=== PATIENT | male | born 1945 | race Caucasian/White ===

== ENCOUNTER 2020-10-02 21:22 | Inpatient (IN) | payer MEDICARE, OTHER ==
[~2020-10-02] VITALS: Ht 188 cm; Wt 90.7 kg
[2020-10-02] MEDS ORDERED: ALTACE10 MG PO (21:39)
[2020-10-02] MEDS ORDERED: NORVASC10 MG PO (21:39)
[2020-10-02] MEDS ORDERED: PREVACID30 MG PO (21:40)
[2020-10-02 21:52] LABS: BASOPHILS 0.1 % (0-2); EOSINOPHILS 0 % (0-7); HEMATOCRIT 42.1 % (42.0-54.0); HEMOGLOBIN 14.4 g/dL (13.5-17.5); IMMATURE GRANULOCYTES 0.3 % (0-5); LYMPHOCYTE ABS# 0.85 10x3/uL (1.32-3.57); LYMPHOCYTES 5.3 % (15-50); MCH 30.4 pg (26.0-34.0); MCHC 34.2 g/dL (31.0-37.0); MCV 88.8 fL (80.0-100.0); MEAN PLATELET VOLUME 9.7 fL (7.4-10.4); MONOCYTES 8.1 % (2-11); NEUTROPHIL ABS# 13.87 10x3/uL (1.78-5.38); NEUTROPHILS 86.2 % (40-80); PLATELET COUNT 232 10x3/uL (130-400); RBC 4.74 10x6/uL (4.20-6.10); RDW 13.4 % (11.5-14.5); WBC 16.1 10x3/uL (4.8-10.8)
[2020-10-02 22:21] LABS: CALC OSMOLALITY 279 mosm/kg (275-300); CALCIUM 9.5 mg/dL (8.5-10.1); CARBON DIOXIDE 23.8 mmol/L (21.0-32.0); CHLORIDE - SERUM 101 mmol/L (98-107); CREATININE - SERUM 1.4 mg/dL (0.6-1.3); GLUCOSE 164 mg/dL (74-106); POTASSIUM - SERUM 4.1 mmol/L (3.5-5.1); SODIUM 136 mmol/L (136-145); UREA NITROGEN 23 mg/dL (7-18); eGFR NON AFRICAN AMERICAN 52 mL/min (90-120)
[2020-10-02 22:33] LABS: ALBUMIN 3.7 g/dL (3.4-5.0); ALKALINE PHOSPHATASE 251 U/L (30-120); ALT (SGPT) 475 U/L (10-68); AMYLASE - SERUM 57 U/L (25-115); BILIRUBIN - TOTAL 6.39 mg/dL (0.2-1.3); LIPASE 132 U/L (73-393); PROTEIN - SERUM 8.1 g/dL (6.4-8.2)
[2020-10-02 22:34] LABS: TROPONIN-I < 0.017 ng/mL (0.000-0.060)
[2020-10-03 03:24] VITALS: BP 133/76; BMI 25.7
[2020-10-03 03:53] LABS: BILIRUBIN 3+ (NEGATIVE); KETONE NEGATIVE (NEGATIVE); NITRITE NEGATIVE (NEGATIVE); UROBILINOGEN NORMAL mg/dL (< 2)
[2020-10-03 03:54] LABS: BACTERIA MODERATE HPF (NONE SEEN); SQUAMOUS EPITHELIAL 0-5 HPF (0-4); WHITE CELLS - URINE 0-5 HPF (0-1)
[2020-10-03 04:00] VITALS: BP 114/67
[2020-10-03 05:32] LABS: BASOPHILS 0 % (0-2); EOSINOPHILS 0.1 % (0-7); HEMATOCRIT 39.1 % (42.0-54.0); HEMOGLOBIN 13.1 g/dL (13.5-17.5); IMMATURE GRANULOCYTES 0.3 % (0-5); LYMPHOCYTE ABS# 1.19 10x3/uL (1.32-3.57); LYMPHOCYTES 9.2 % (15-50); MCHC 33.5 g/dL (31.0-37.0); MCV 89.7 fL (80.0-100.0); MONOCYTES 8.3 % (2-11); NEUTROPHIL ABS# 10.57 10x3/uL (1.78-5.38); NEUTROPHILS 82.1 % (40-80); PLATELET COUNT 218 10x3/uL (130-400); RBC 4.36 10x6/uL (4.20-6.10); RDW 13.6 % (11.5-14.5); WBC 12.9 10x3/uL (4.8-10.8)
[2020-10-03 05:58] LABS: ALBUMIN 3.1 g/dL (3.4-5.0); ANION GAP 11.7 mmol/L (8-16); BILIRUBIN - DIRECT 5.13 mg/dL (0.00-0.30); BILIRUBIN - INDIRECT 1.3 mg/dL (0.00-1.00); BILIRUBIN - TOTAL 6.43 mg/dL (0.2-1.3); CALCIUM 9.1 mg/dL (8.5-10.1); CARBON DIOXIDE 26.4 mmol/L (21.0-32.0); CREATININE - SERUM 1.4 mg/dL (0.6-1.3); POTASSIUM - SERUM 4.1 mmol/L (3.5-5.1); PROTEIN - SERUM 7.1 g/dL (6.4-8.2)
[2020-10-03 06:01] LABS: INR 1.18 (0.85-1.17); PROTIME 13.9 SECONDS (11.6-15.0)
[2020-10-03 06:02] LABS: APTT 28.4 SECONDS (22.8-39.4)
[2020-10-03 08:39] VITALS: BP 107/65
[2020-10-03 12:08] VITALS: BP 115/69
[2020-10-03 16:48] VITALS: BP 117/63
--- NOTE | 2020-10-03 17:26 | NUR ---
RESTING,WITHOUT SIGNS OF DISTRESS
--- NOTE | 2020-10-03 18:38 | NUR ---
RECIEVED CALL FROM MARGARET IN LAB PATIENT BLOOD CULTERS ARE GRAM + COCCI IN CHAINS. PAGED DR ELAM AND TEXTED DR GILL WHOM IS PATIENT ADMITTING
--- NOTE | 2020-10-03 19:55 | NUR ---
SPOKE TO DR GILL IN REGARDS TO PATIENT LAB RESULTS, RECEIVED ORDERS TO START PATIENT ON ANTIBIOTICS. HAD PATIENT SIGN CONSENTS FOR ERCP. NO OTHER NEEDS AT THIS TIME. CONTINUE WITH PLAN OF ARE
[2020-10-03 20:00] VITALS: BP 110/60
[2020-10-04] VITALS (7 sets, daily range): BP systolic 102–128; BP diastolic 61–76; Ht 188 cm; Wt 90.7 kg
--- NOTE | 2020-10-04 07:53 | NUR ---
EMT I/99 LIGHT. IV BEEPING. FIXED THE PROBLEM. PATIENT IN BED. DENIES FURTHER NEEDS AT THIS TIME. BED LOW POSITION, CALL LIGHT IN REACH. FREE FROM SIGNS OF DISTRESS. NPO SINCE MIDNIGHT. WILL CONTINUE TO MONITOR.
[2020-10-04 08:27] LABS: BASOPHILS 0.1 % (0-2); EOSINOPHILS 0.3 % (0-7); HEMATOCRIT 36.3 % (42.0-54.0); HEMOGLOBIN 12.3 g/dL (13.5-17.5); IMMATURE GRANULOCYTES 0.2 % (0-5); LYMPHOCYTE ABS# 1.16 10x3/uL (1.32-3.57); LYMPHOCYTES 10.1 % (15-50); MCH 30.2 pg (26.0-34.0); MCHC 33.9 g/dL (31.0-37.0); MCV 89.2 fL (80.0-100.0); MEAN PLATELET VOLUME 9.8 fL (7.4-10.4); MONOCYTES 9.6 % (2-11); NEUTROPHIL ABS# 9.13 10x3/uL (1.78-5.38); NEUTROPHILS 79.7 % (40-80); PLATELET COUNT 176 10x3/uL (130-400); RBC 4.07 10x6/uL (4.20-6.10); RDW 13.7 % (11.5-14.5); WBC 11.5 10x3/uL (4.8-10.8)
[2020-10-04 08:54] LABS: ALBUMIN 2.8 g/dL (3.4-5.0); ANION GAP 11.9 mmol/L (8-16); BILIRUBIN - TOTAL 6.94 mg/dL (0.2-1.3); CALCIUM 8.2 mg/dL (8.5-10.1); CARBON DIOXIDE 24.9 mmol/L (21.0-32.0); CREATININE - SERUM 1.2 mg/dL (0.6-1.3); POTASSIUM - SERUM 3.8 mmol/L (3.5-5.1); PROTEIN - SERUM 6.1 g/dL (6.4-8.2)
--- NOTE | 2020-10-04 10:50 | NUR ---
RIGHT AC IV WENT BAD. REMOVED, CATH TIP INTACT. STARTED IV IN LEFT FOREARM 22 GUAGE. FLUIDS RESUMED.
--- NOTE | 2020-10-04 16:23 | NUR ---
PATIENT LEFT UNIT TO PROCEDURE.
--- NOTE | 2020-10-04 20:00 | NUR ---
PT SITTING UP IN BED WITHOUT DISTRESS, AOX4. AT BEDSIDE. HELPED PT TAKE HIBI CLENS FOR LAP DEISY TOMORROW. CONSENTS ON CHART. REMINDED PT HE IS NPO AFTER MN. VERBALIZED UNDERSTANDING. DENIES OTHER NEEDS
[2020-10-05] VITALS (11 sets, daily range): BP systolic 106–124; BP diastolic 65–76
--- NOTE | 2020-10-05 00:21 | NUR ---
PT IV LEFT WRIST INFILTRATED. REMOVED WITH CATH INTACT. RESITED 20G IV TO LEFT FA X1 ATTEMPT
--- NOTE | 2020-10-05 07:26 | NUR ---
RECIEVED BEDSIDE REPORT. DENIES NEEDS AT THIS TIME. BED LOW POSITION, CALL LIGHT IN REACH. FREE FROM SIGNS OF DISTRESS. WILL CONTINUE TO MONITOR.
[2020-10-05 07:59] LABS: ALBUMIN 2.6 g/dL (3.4-5.0); ANION GAP 12.1 mmol/L (8-16); BILIRUBIN - TOTAL 4.25 mg/dL (0.2-1.3); CALCIUM 8.7 mg/dL (8.5-10.1); CARBON DIOXIDE 23.9 mmol/L (21.0-32.0); CREATININE - SERUM 1.1 mg/dL (0.6-1.3); PROTEIN - SERUM 6.6 g/dL (6.4-8.2)
[2020-10-05 08:11] LABS: BASOPHILS 0 % (0-2); EOSINOPHILS 0 % (0-7); HEMATOCRIT 34.7 % (42.0-54.0); IMMATURE GRANULOCYTES 0.1 % (0-5); LYMPHOCYTE ABS# 0.98 10x3/uL (1.32-3.57); LYMPHOCYTES 13.8 % (15-50); MCH 30.5 pg (26.0-34.0); MCHC 34.6 g/dL (31.0-37.0); MCV 88.1 fL (80.0-100.0); MONOCYTES 6.3 % (2-11); NEUTROPHIL ABS# 5.67 10x3/uL (1.78-5.38); NEUTROPHILS 79.8 % (40-80); PLATELET COUNT 202 10x3/uL (130-400); RBC 3.94 10x6/uL (4.20-6.10); RDW 13.8 % (11.5-14.5)
[2020-10-05 08:15] LABS: WBC 7.1 10x3/uL (4.8-10.8)
--- NOTE | 2020-10-05 10:07 | NUR ---
LEFT UNIT TO PROCEDURE AT THIS TIME.
--- NOTE | 2020-10-05 13:15 | NUR ---
1310 - DR GILL CONSULTED TO ENSURE NO OBJECTIONS TO ONE-TIME DOSE OF TORADOL. ORDERS RECEIVED AND IMPLEMENTED.
--- NOTE | 2020-10-05 13:40 | NUR ---
PATIENT IN BED BACK FROM SURGERY. VITAL SIGNS STABLE. SLEEPY. WILL CONTINUE TO MONITOR.
[2020-10-05 15:12] LABS: ALPHA FETOPROTEIN -(TUMOR MRK) <0.9 ng/mL (0.0-8.3); CA 19-9 209 U/mL (0-35)
--- NOTE | 2020-10-05 16:48 | NUR ---
IN BED RESTING. POST OP VITAL SIGNS STABLE AND CHARTED. LAP SITES CDI. AROUSES TO VOICE. DENIES NEEDS AT THIS TIME. BED LOW POSITION, CALL LIGHT IN REACH. WILL CONTINUE TO MONITOR
[2020-10-06 01:26] VITALS: BP 158/87
[2020-10-06 05:37] LABS: BASOPHILS 0.1 % (0-2); EOSINOPHILS 0.1 % (0-7); HEMATOCRIT 33.7 % (42.0-54.0); HEMOGLOBIN 11.4 g/dL (13.5-17.5); IMMATURE GRANULOCYTES 0.2 % (0-5); LYMPHOCYTE ABS# 0.76 10x3/uL (1.32-3.57); LYMPHOCYTES 8.3 % (15-50); MCH 30.2 pg (26.0-34.0); MCHC 33.8 g/dL (31.0-37.0); MCV 89.4 fL (80.0-100.0); MEAN PLATELET VOLUME 10.1 fL (7.4-10.4); MONOCYTES 10.9 % (2-11); NEUTROPHILS 80.4 % (40-80); PLATELET COUNT 234 10x3/uL (130-400); RBC 3.77 10x6/uL (4.20-6.10); RDW 14.2 % (11.5-14.5)
[2020-10-06 05:39] LABS: WBC 9.2 10x3/uL (4.8-10.8)
[2020-10-06 06:09] LABS: ALBUMIN 2.5 g/dL (3.4-5.0); ANION GAP 8.5 mmol/L (8-16); BILIRUBIN - TOTAL 2.91 mg/dL (0.2-1.3); CARBON DIOXIDE 28.3 mmol/L (21.0-32.0); CREATININE - SERUM 1.2 mg/dL (0.6-1.3); POTASSIUM - SERUM 3.8 mmol/L (3.5-5.1); PROTEIN - SERUM 6.1 g/dL (6.4-8.2)
[2020-10-06 06:26] VITALS: BP 127/76
[2020-10-06 08:26] VITALS: BP 130/68
[2020-10-06 13:25] VITALS: BP 142/80
--- NOTE | 2020-10-06 15:40 | NUR ---
PATIENT AMBULATED IN HUSSEIN WITH ASSISTANCE AT THIS TIME. STILL FEELING SLIGHTLY NAUSEATED AND DIZZY AT TIME. IV INTACT. CALL LIGHT WITHIN REACH.
[2020-10-06 17:11] VITALS: BP 136/74
--- NOTE | 2020-10-06 18:43 | NUR ---
PATIENT IN BED WITH IV INTACT. NO COMPLAINTS OR SIGNS OF DISTRESS. AT BEDSIDE HELPING WITH BED BATH. CALL LIGHT WITHIN REACH.
--- NOTE | 2020-10-07 01:30 | NUR ---
PT STILL NOT PASSING GAS. ENCOURAGED PT TO WALK. PT VOMITED ABOUT 300 CC'S BROWN LIQUID EMESIS. PT STILL NOT PASSING GAS. ABDOMEN DISTENDED.
[2020-10-07 07:42] VITALS: BP 133/79
[2020-10-07 11:50] VITALS: BP 115/70
[2020-10-07 16:49] VITALS: BP 121/73
[2020-10-07 23:02] VITALS: BP 112/68
--- NOTE | 2020-10-08 01:32 | NUR ---
I have reviewed this patient and I concur with the Shift Assessment completed by the Licensed Practical Nurse today this shift.
[2020-10-08 04:53] VITALS: BP 123/70
--- NOTE | 2020-10-08 08:00 | NUR ---
ASSESSMENT PER FLOW SHEET. PATIENT IS WITHOUT DISTRESS.MONITOR
[2020-10-08 08:35] VITALS: BP 114/60
[2020-10-08 11:27] VITALS: BP 99/49
--- NOTE | 2020-10-08 13:11 | NUR ---
Nutrition follow-up: Pts diet advanced to full liquids today and possible home tomorrow + flatus; + BM yet Wt: 199# Labs reviewed Wt: 199# Some nausea, vomiting last night but better today Will offer nutritional supplement with full liquids RDN follow-up: 10/11/20
--- NOTE | 2020-10-08 15:47 | NUR ---
HAS AMBULATED IN HUSSEIN FOR 2 LAPS. STATES PASSING SOME GAS AND SMALL BM REPORTED
[2020-10-08 17:19] VITALS: BP 103/49
[2020-10-08 18:08] LABS: AEROBE ID Final report (())
[2020-10-08 19:51] VITALS: BP 128/70
[2020-10-09 04:44] VITALS: BP 133/68
[2020-10-09 04:52] LABS: BASOPHILS 0.2 % (0-2); EOSINOPHILS 4.1 % (0-7); HEMATOCRIT 28.3 % (42.0-54.0); HEMOGLOBIN 9.5 g/dL (13.5-17.5); IMMATURE GRANULOCYTES 0.9 % (0-5); LYMPHOCYTE ABS# 1.59 10x3/uL (1.32-3.57); LYMPHOCYTES 16.7 % (15-50); MCHC 33.6 g/dL (31.0-37.0); MCV 89.3 fL (80.0-100.0); MEAN PLATELET VOLUME 10.1 fL (7.4-10.4); MONOCYTES 9.1 % (2-11); NEUTROPHIL ABS# 6.56 10x3/uL (1.78-5.38); RBC 3.17 10x6/uL (4.20-6.10); RDW 14.2 % (11.5-14.5); WBC 9.5 10x3/uL (4.8-10.8)
[2020-10-09 05:06] LABS: PLATELET COUNT 292 10x3/uL (130-400)
[2020-10-09 05:20] LABS: ALBUMIN 1.9 g/dL (3.4-5.0); ALKALINE PHOSPHATASE 106 U/L (30-120); ALT (SGPT) 67 U/L (10-68); CALC OSMOLALITY 278 mosm/kg (275-300); CALCIUM 7.8 mg/dL (8.5-10.1); CARBON DIOXIDE 26.8 mmol/L (21.0-32.0); CHLORIDE - SERUM 107 mmol/L (98-107); GLUCOSE 99 mg/dL (74-106); POTASSIUM - SERUM 3.4 mmol/L (3.5-5.1); PROTEIN - SERUM 5.2 g/dL (6.4-8.2); SODIUM 139 mmol/L (136-145); UREA NITROGEN 15 mg/dL (7-18); eGFR NON AFRICAN AMERICAN 77 mL/min (90-120)
--- NOTE | 2020-10-09 07:05 | NUR ---
Patient denied pain, he walked the mclean last night, he appeared to sleep well last night.
--- NOTE | 2020-10-09 08:00 | NUR ---
ASSESSMENTPER FLOW SHEET. PATIENT IS WITHOUT DISTRESS.MONITOR FOR NEEDS
--- NOTE | 2020-10-09 08:12 | OP ---
PATIENT NAME: MILLY CROWE MEDICAL RECORD: [id number] :41 LOCATION:D.[id number] ADMISSION DATE:10/02/20 SURGEON: YAHIR GILL MD DATE OF OPERATION: 10/05/2020 PREOPERATIVE DIAGNOSES: 1. Acute cholecystitis. 2. Choledocholithiasis. 3. Jaundice. 4. Bacteremia. POSTOPERATIVE DIAGNOSES: 1. Acute cholecystitis. 2. Choledocholithiasis. 3. Jaundice. 4. Bacteremia. PROCEDURE: Laparoscopic cholecystectomy. SURGEON: Yahir Gill MD REPORT OF PROCEDURE: The patient's abdomen was prepped and draped in sterile fashion. A cutdown was made on the superior aspect of the umbilicus. 0 Vicryls were placed in the fascia bilaterally and the fascia was incised with a 15-blade. I then bluntly entered the peritoneal cavity and placed a 12-mm Waqas port. Under direct visualization, a 5-mm trocar was placed in the epigastrium and 2 more 5-mm trocars were placed in the right subcostal region. The patient had a lot of inflammatory adhesions in the right upper quadrant. This made visualization of the gallbladder difficult. The adhesions were mainly of the omentum and surrounding fatty tissues. We did a tedious dissection of this fatty tissue off of the gallbladder. The patient's duodenum and colon were very nearby and we were able to dissect these structures off. Upon doing this, there was some loss of blood. A couple of vessels had to be clipped and ligated. We eventually were able to get down to the gallbladder, which had some almost necrotic appearance with such severe inflammation. As we dissected down, we were able to find the structure, which appeared to be the cystic duct. The structures medial to this were very difficult to dissect out. For this reason, I performed a dome down dissection of the gallbladder off the liver bed. This was very difficult because of the severe inflammation of the gallbladder, making it difficult to find any planes. We ended up taking a small section of liver tissue with this upon removing the posterior aspect of the gallbladder wall. As we came down, we were able to eventually dissect out all of the structures and I was able to find the cystic artery and cystic duct. The cystic artery was clipped proximally and distally and ligated and the cystic duct was transected with a 45 blue load Endo-GREYSON stapler because it was too wide for clips. Once we had this done and the gallbladder was completely free from the surrounding structures, the gallbladder was placed into an EndoCatch bag. We irrigated out the right upper quadrant and any bleeding from the liver bed was initially treated with electrocautery followed by installation of Hollis. There was no sign of any active bleeding present. A 19 fully fluted drain was then inserted through the lateral port site and rested near the gallbladder fossa. This was sutured into place with a 3-0 nylon. The ports and insufflation were then removed and the gallbladder was taken out through the umbilicus. The umbilical fascia was closed with interrupted 0 Vicryl times 3. The wounds were then irrigated out with normal saline and infused with 10 mL of 0.25% Marcaine with OPERATIVE REPORT [id number] MILLY CROWE. The skin incisions were closed with subcutaneous 5-0 Monocryl and dressed appropriately. COMPLICATIONS: None. CONDITION: Stable. ANESTHESIA: General endotracheal. LOCAL BLOOD LOSS: 100 mL. TRANSINT:[id number] Voice Confirmation ID: [id number] DOCUMENT ID: [id number] YAHIR GILL MD at 0812 CC: NEELA WILSON DO [id number] DICTATION DATE: 10/05/20 1232 BODY SHOP SUPERVISOR: 10/05/20 1909 ADM IN [facility] [address] [place] [address]
[2020-10-09 09:07] VITALS: BP 122/66
[2020-10-09 12:59] VITALS: BP 109/60
[2020-10-09 17:18] VITALS: BP 123/75
--- NOTE | 2020-10-09 19:27 | NUR ---
PATIENT REMAINS WITHOUT CHNAGE. TOLERATING FLD. CONT PLAN OF CARE
[2020-10-09 20:06] VITALS: BP 113/52
[2020-10-10 00:27] VITALS: BP 118/60
--- NOTE | 2020-10-10 02:32 | NUR ---
Patient had son at bedside at shift change, denies pain, he is currently resting in bed with his eyes closed.
[2020-10-10 04:00] VITALS: BP 121/64
[2020-10-10 06:13] LABS: BASOPHILS 0.3 % (0-2); EOSINOPHILS 4.1 % (0-7); HEMATOCRIT 28.5 % (42.0-54.0); HEMOGLOBIN 9.5 g/dL (13.5-17.5); IMMATURE GRANULOCYTES 1.7 % (0-5); LYMPHOCYTE ABS# 1.02 10x3/uL (1.32-3.57); LYMPHOCYTES 14.5 % (15-50); MCH 29.7 pg (26.0-34.0); MCHC 33.3 g/dL (31.0-37.0); MCV 89.1 fL (80.0-100.0); MEAN PLATELET VOLUME 9.4 fL (7.4-10.4); MONOCYTES 9.5 % (2-11); NEUTROPHILS 69.9 % (40-80); RDW 14.3 % (11.5-14.5)
[2020-10-10 06:17] LABS: PLATELET COUNT 370 10x3/uL (130-400)
[2020-10-10 06:37] LABS: ALBUMIN 2.1 g/dL (3.4-5.0); ALKALINE PHOSPHATASE 117 U/L (30-120); ALT (SGPT) 71 U/L (10-68); BILIRUBIN - TOTAL 1.37 mg/dL (0.2-1.3); CALC OSMOLALITY 278 mosm/kg (275-300); CALCIUM 7.6 mg/dL (8.5-10.1); CARBON DIOXIDE 27.4 mmol/L (21.0-32.0); CHLORIDE - SERUM 108 mmol/L (98-107); CREATININE - SERUM 0.9 mg/dL (0.6-1.3); GLUCOSE 113 mg/dL (74-106); POTASSIUM - SERUM 3.7 mmol/L (3.5-5.1); SODIUM 140 mmol/L (136-145); eGFR NON AFRICAN AMERICAN 87 mL/min (90-120)
[2020-10-10 06:39] LABS: UREA NITROGEN 11 mg/dL (7-18)
[2020-10-10 07:56] VITALS: BP 122/63
--- NOTE | 2020-10-10 08:30 | NUR ---
PATIENT IN BED WITH IV INTACT. NO COMPLAINTS OR SIGNS OF DISTRESS. CALL LIGHT WITHIN REACH.
--- NOTE | 2020-10-10 10:39 | MORECARE ---
CASE MANAGEMENT DISCHARGE SUMMARY PATIENT: MILLY CROWE UNIT: [id number] ADM DATE: 10/02/20 AGE: 74 : 43 SEX: M ROOM/BED: D.2214 AUTHOR: JUAREZDOC PHYSICIAN: REFERRING PHYSICIAN: SHERRIE GILL MD DATE OF SERVICE: 10/10/20 Discharge Plan Patient Name: MILLY CROWE Facility: [facility]:[place] : 1945 Planned Disposition: Home or Self Care Anticipated Discharge Date: Discharge Date: Expected LOS: Initial Reviewer: [email or web address] Initial Review Date: 10/03/2020 Generated: 10/10/20 11:38 am Comments DCP- Discharge Planning Updated by [email or web address]: Chantel Muro on 10/10/20 9:[address] Patient Name: MILLY CROWE Admission Status: ER Accout number: [id number] Admission Date: 10-02-2020 : 1945 Admission Diagnosis:ELEVATION OF LEVELS OF LIVER TRANSAMINASE LEVELS Attending: SHERRIE GILL Current LOS: 8 Anticipated DC Date: Planned Disposition: Home or Self Care Primary Insurance: MEDICARE A & B Discharge Planning Comments: CM met with patient to complete initial dc planning assessment. CM educated patient on the CM role and verbal consent given by patient to complete assessment. Patient lives at home with his in [place] about 60 [place] of [place]. The patient was traveling when he became sick and ended up here at the hospital. His niece works at [employer] and both him and his will be staying there while he recovers before making the trip back home to [place]. At discharge patient plans to return his niece's house and feels this is a safe discharge. CM discussed availability of home health, rehab services, and medical equipment. 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 He does not need anything from a CM standpoint. IMM served and explained. Patient denied known discharge needs at this time. CM will continue to follow and will assist as needed with dc plans/needs Grip Assembler: Chantel Muro DCPIA - Discharge Planning Initial Assessment Updated by [email or web address]: Chantel Muro on 10/10/20 10:33 am * Is the patient Alert and Oriented? Yes * PCP [facility] IN [place] * [facility] ( [place]) * Preadmission Environment Home with Family * ADLs Independent * Equipment None * List name and contact numbers for known caregivers / representatives who currently or will assist patient after discharge: BETTYDIA CASTELLON ( [facility]) [phone] * Verbal permission to speak to the caregivers and representatives has been obtained from the patient. Yes * Community resources currently utilized None * Additional services required to return to the preadmission environment? No * Can the patient safely return to the preadmission environment? Yes * Has this patient been hospitalized within the prior 30 days at any hospital? No Coverage Notice Reviewer: [email or web address] Mariah Muro Notice Issued Date-Time: 10/10/2020 10:05 Notice Type: IM Discharge Notice Notice Delivered To: Patient Relationship to Patient: Fruit Pitter Name: Delivery Method: HAND - Hand Delivered Amy Days: Prior Verbal Notification: Recipient Understood Notice: Yes Recipient Signature: Yes Med Rec Note Co-signed by Attending: Coverage Notice Comment: imm served and explained Patient Name: MILLY CROWE Page [phone] at 1039 All edits/amendments must be made on the electronic document DICTATION DATE: 10/10/20 1038 TEST BAKER: SAIGE 10/10/20 1038 RPT#: [id number] DC DATE: STATUS: ADM IN [facility] [address] [place] [address] END OF REPORT
[2020-10-10 11:39] VITALS: BP 183/41
[2020-10-10] MEDS ORDERED: HYDROCODON-ACE1 EA10 PO (15:58)
[2020-10-10] MEDS ORDERED: FLORAJEN3 CAPS460 MG PO (15:58)
[2020-10-10] MEDS ORDERED: ZOFRAN INJ IV (15:58)
[2020-10-10] MEDS ORDERED: CLEOCIN HCL300 MG PO (16:00)
[2020-10-10] MEDS ORDERED: ZOFRAN4 MG PO (16:47)
[2020-10-10 17:04] VITALS: BP 108/57
--- NOTE | 2020-10-10 18:10 | NUR ---
PATIENT RECIEVED DC INSTRUCTIONS. VERBALIZED UNDERSTANDING. NO QUESTIONS AT THIS TIME. AT BEDSIDE. EXPLAINED MEDS CALLED INTO PHARMACY. IV REMOVED WITH CATH TIP INTACT. ESCORTED DOWN TO PRIVATE VEHICLE WITH PERSONAL BELONGINGS BY ASSEMBLY AND PACKING SUPERVISOR. CALL LIGHT WITHIN REACH.
--- NOTE | 2020-10-11 08:00 | MORECARE ---
CASE MANAGEMENT DISCHARGE SUMMARY PATIENT: MILLY CROWE UNIT: [id number] ADM DATE: 10/02/20 AGE: 74 : 43 SEX: M ROOM/BED: D.2214 AUTHOR: JUAREZDOC PHYSICIAN: REFERRING PHYSICIAN: SHERRIE GILL MD DATE OF SERVICE: 10/11/20 Discharge Plan Patient Name: MILLY CROWE Facility: [facility]:[place] : 1945 Planned Disposition: Home or Self Care Anticipated Discharge Date: Discharge Date: 10/10/2020 Expected LOS: Initial Reviewer: [email or web address] Initial Review Date: 10/03/2020 Generated: 10/11/20 8:59 am Comments DCP- Discharge Planning Updated by [email or web address]: Chantel Muro on 10/10/20 9:[address] Patient Name: MILLY CROWE Admission Status: ER Accout number: [id number] Admission Date: 10-02-2020 : 1945 Admission Diagnosis:ELEVATION OF LEVELS OF LIVER TRANSAMINASE LEVELS Attending: SHERRIE GILL Current LOS: 8 Anticipated DC Date: Planned Disposition: Home or Self Care Primary Insurance: MEDICARE A & B Discharge Planning Comments: CM met with patient to complete initial dc planning assessment. CM educated patient on the CM role and verbal consent given by patient to complete assessment. Patient lives at home with his in [place] about 60 miles north of [place]. The patient was traveling when he became sick and ended up here at the hospital. His niece works at [employer] and both him and his will be staying there while he recovers before making the trip back home to [place]. At discharge patient plans to return his niece's house and feels this is a safe discharge. CM discussed availability of home health, rehab services, and medical equipment. 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 He does not need anything from a CM standpoint. [facility] served and explained. Patient denied known discharge needs at this time. CM will continue to follow and will assist as needed with dc plans/needs Human Resources District Manager: Chantel Muro DCPIA - Discharge Planning Initial Assessment Updated by [email or web address]: Chantel Muro on 10/10/20 10:33 am * Is the patient Alert and Oriented? Yes * PCP [facility] IN [place] * [facility] ( [place]) * Preadmission Environment Home with Family * ADLs Independent * Equipment None * List name and contact numbers for known caregivers / representatives who currently or will assist patient after discharge: BETTY CASTELLON ( [facility]) [phone] * Verbal permission to speak to the caregivers and representatives has been obtained from the patient. Yes * Community resources currently utilized None * Additional services required to return to the preadmission environment? No * Can the patient safely return to the preadmission environment? Yes * Has this patient been hospitalized within the prior 30 days at any hospital? No Coverage Notice Reviewer: [email or web address] Mariah Muro Notice Issued Date-Time: 10/10/2020 10:05 Notice Type: IM Discharge Notice Notice Delivered To: Patient Relationship to Patient: Cottage Attendant Name: Delivery Method: HAND - Hand Delivered Amy Days: Prior Verbal Notification: Recipient Understood Notice: Yes Recipient Signature: Yes Med Rec Note Co-signed by Attending: Coverage Notice Comment: imm served and explained Last DP export: 10/10/20 9:39 a Patient Name: MILLY CROWE Page [id number] at 0800 All edits/amendments must be made on the electronic document DICTATION DATE: 10/11/20 08 MANAGER CLEANING: SAIGE 10/11/20 0800 RPT#: [id number] DC DATE:10/10/20 STATUS: DIS IN [facility] [address] [place] [address] END OF REPORT
== END 2020-10-10 18:00 | disposition home or self-care (01) | DRG 418 ==
LOC: D.ER 21:22 → D.MS 23:48 → D.EDHOLD 23:48 → D.MS 10-03 01:20
PROVIDERS: Family Medicine; Internal Medicine Gastroenterology; ADMIT Surgery; ATTEND Surgery
PROC: 0DB58ZX Excision of Esophagus, Via Natural or Artificial Opening Endoscopic, Diagnostic (ICD-10-PCS; 2020-10-04)
PROC: 0FC98ZZ Extirpation of Matter from Common Bile Duct, Via Natural or Artificial Opening Endoscopic (ICD-10-PCS; principal; 2020-10-04 14:30)
PROC: 0FT44ZZ Resection of Gallbladder, Percutaneous Endoscopic Approach (ICD-10-PCS; 2020-10-05)
DX: K80.42 Calculus of bile duct with acute cholecystitis without obstruction (principal); R78.81 Bacteremia; R74.01 Elevation of levels of liver transaminase levels; E80.6 Other disorders of bilirubin metabolism; I10 Essential (primary) hypertension; K76.89 Other specified diseases of liver; K21.00 Gastro-esophageal reflux disease with esophagitis, without bleeding; K22.8 Other specified diseases of esophagus